=== PATIENT | female | born 1950 | race Caucasian/White ===

== ENCOUNTER 2017-04-24 11:41 | Outpatient (CLI) | payer OTHER, MEDICARE ==
[2017-04-24] MEDS ORDERED: fentaNYL 100 MCG/2 ML INJ IVP PRN (11:44)
[2017-04-24] MEDS ORDERED: NALOXONE HCL 0.4 MG/ML INJ IVP PRN (11:44)
[2017-04-24] MEDS ORDERED: MEPERIDINE 25 MG/ML SYR IVP PRN (11:44)
[2017-04-24] MEDS ORDERED: FLUMAZENIL 0.5 MG/5 ML MDV IVP PRN (11:44)
[2017-04-24] MEDS ORDERED: MIDAZOLAM 2 MG/2 ML VIAL IVP PRN (11:44)
[2017-04-24] MEDS ORDERED: NS 1,000 ML IV SCH (11:45)
[2017-04-24] MEDS ORDERED: MIDAZOLAM 2 MG/2 ML VIAL ONE (12:48)
[2017-04-24] MEDS ORDERED: fentaNYL 100 MCG/2 ML INJ ONE (12:49)
--- NOTE | 2017-04-24 13:13 | PDGENHP ---
History & Physical Chief Complaint: LBP radiating down right leg History of Present Illness: 75 yo F w LBP radiating down Rt leg, improved recently Pertinent Past, Social, Family History: Non contributory Relevant Physical Exam: WNL Cardiorespiratory Assessment: RRR, normal resp effort
--- NOTE | 2017-04-24 13:18 | PDPROPOC ---
Sedation Plan of Care Sedation Plan of Care: vital signs stable, mental status noted, patient educated of risks, benefits, alternatives, patient can tolerate sedation ASA Classification: ASA 2 Planned drugs: fentanyl, midazolam Mallampati Score: Class 3 Mallampati Reference Image: Patient passed 3-3-2 rule?: Yes
[2017-04-24 13:35] VITALS: PULSE 71; RESP 16
[2017-04-24] MEDS ORDERED: ONDANSETRON 4 MG/2 ML VIAL IVP PRN (14:29)
[2017-04-24] MEDS ORDERED: ACETAMINOPHEN 325 MG TAB PO PRN (14:29)
[2017-04-24 14:52] VITALS: BP 119/71; TEMP 97.7; O2SAT 97
== END 2017-04-24 14:40 | disposition home or self-care (01) ==
LOC: FIMAGING 11:41
PROVIDERS: ATTEND Family Medicine
DX: M54.16 Radiculopathy, lumbar region (principal); F41.9 Anxiety disorder, unspecified; Z98.890 Other specified postprocedural states
CPT/HCPCS: 72148; J2250; J3010

== ENCOUNTER → 2017-05-03 | Outpatient (CLI) | payer OTHER, MEDICARE | LOC: GIMAGING 11:30 | PROVIDERS: ATTEND Family Medicine | DX: M17.0 Bilateral primary osteoarthritis of knee (principal) | CPT/HCPCS: 73565-PO ==

== ENCOUNTER → 2018-01-23 | Outpatient (CLI) | payer OTHER, MEDICARE | LOC: FIMAGING 08:32 | PROVIDERS: ATTEND Family Medicine | DX: K44.9 Diaphragmatic hernia without obstruction or gangrene (principal); K21.9 Gastro-esophageal reflux disease without esophagitis ==